=== PATIENT | female | born 1940 | race Caucasian/White ===

== ENCOUNTER 2020-05-03 05:53 | Day surgery (SDC) | payer MEDICARE, BC ==
[2020-05-02 10:10] LABS: PARTIAL THROMBOPLASTIN TIME 28 SECONDS (22-32)
[2020-05-02 10:13] LABS: ALBUMIN 3.6 G/DL (3.4-5.0); ANION GAP 5 (8-16); BLOOD UREA NITROGEN 10 MG/DL (7-18); BUN/CREATININE RATIO 12.3 (6.6-38.0); CALCIUM 9.6 MG/DL (8.5-10.1); CHLORIDE 96 MMOL/L (99-107); CREATININE 0.81 MG/DL (0.40-0.90); GLUCOSE 102 MG/DL (70-104); SODIUM 134 MMOL/L (135-145); TOTAL CARBON DIOXIDE 32.8 MMOL/L (24-32); eGFR 68 ML/MIN
[2020-05-02 10:20] LABS: BASOPHILS % (AUTO) 1.3 % (0-1); HEMATOCRIT 36.6 % (35.0-45.0); HEMOGLOBIN 12.5 g/dl (12.0-16.0); LYMPHOCYTES # (AUTO) 0.8 X10'3 (1.1-4.8); LYMPHOCYTES % (AUTO) 40.9 % (21-51); MEAN CORPUSCULAR HEMOGLOBIN 32.6 PG (27.0-31.0); MEAN CORPUSCULAR HGB CONC 34.1 g/dL (33.0-36.5); MEAN CORPUSCULAR VOLUME 95.8 FL (78-98); MEAN PLATELET VOLUME 7.9 FL (7.4-10.4); MONOCYTES # (AUTO) 0.2 X10'3 (0-0.9); MONOCYTES % (AUTO) 10.2 % (2-12); NEUTROPHILS # (AUTO) 0.9 X10'3 (1.8-7.7); NEUTROPHILS % (AUTO) 46.6 % (42-75); PLATELET COUNT 163 X10'3 (140-440); RED BLOOD COUNT 3.82 X10'6 (4.20-5.60); RED CELL DISTRIBUTION WIDTH 12.8 % (11.5-14.5)
[2020-05-02 11:05] LABS: TOTAL CELLS COUNTED 100
[2020-05-02 11:07] LABS: PLATELET ESTIMATE NORMAL; STOMATOCYTES 1+
[2020-05-03] VITALS (17 sets, daily range): BP systolic 73–133; BP diastolic 40–104
[~2020-05-03] VITALS: Ht 165.1 cm; Wt 61.8 kg
[~2020-05-03 05:53] MED LIST: ONDA8TAB9 PO
[2020-05-03] MEDS ORDERED: METO50TA16 PO (06:24)
[2020-05-03] MEDS ORDERED: METH2.5T55 PO (06:24)
[2020-05-03] MEDS ORDERED: POTASSIUM (06:24)
[2020-05-03] MEDS ORDERED: LACT1CAP65 PO (06:24)
[2020-05-03] MEDS ORDERED: FOLIC ACID PO (06:24)
[2020-05-03] MEDS ORDERED: HYDR25TA4 PO (06:24)
[2020-05-03] MEDS ORDERED: LORA-268 PO (06:24)
[2020-05-03] MEDS ORDERED: OMEG1CAP2 PO (06:24)
[2020-05-03] MEDS ORDERED: MAGN250T11 PO (06:24)
[2020-05-03] MEDS ORDERED: FLAX100031 PO (06:24)
[2020-05-03] MEDS ORDERED: normal saline 1,000 ML IV SCH ×2 (06:50→09:40)
[2020-05-03] MEDS ORDERED: diphenhydrAMINE 25mg capsule PO PRN (06:50)
[2020-05-03] MEDS ORDERED: LORazepam 0.5 MG tablet PO PRN (06:50)
[2020-05-03] MEDS ORDERED: LIDOcaine/PRILOcaine 5gm cream TP ONE (06:50)
[2020-05-03] MEDS ORDERED: verapamil 2.5 mg/ml inj IV ONE (07:12)
[2020-05-03] MEDS ORDERED: iohexol 350 MG/ML 50ML vial IV ONE (07:13)
[2020-05-03] MEDS ORDERED: fentaNYL/PF 50MCG/1 ML 2ML syringe ONE (07:13)
[2020-05-03] MEDS ORDERED: midazolam 2 mg/2 ml injection ONE (07:13)
[2020-05-03] MEDS ORDERED: LIDOcaine 1% (10mg/ml)w/preservative injection 20ml MDV ONE (07:13)
[2020-05-03] MEDS ORDERED: nitroGLYCERIN-Tridil 50MG/D5W 250 ML IV ONE (07:13)
[2020-05-03] MEDS ORDERED: heparin 1,000unit/ml 10ml vial 10 ML ONE (07:13)
[2020-05-03] MEDS ORDERED: iohexol 350MG/ML 100ml bottle IV ONE ×2 (07:13→08:44)
[2020-05-03 08:41] LABS: ISTAT HGB ART 11.2 g/dl (12.0-16.0); ISTAT Hct ART 33 %PCV (35-48); ISTAT O2 SATURATION ARTERIAL 97 % (95-98); ISTAT SOURCE ART
[2020-05-03] MEDS ORDERED: metoprolol tartrate 50mg tablet PO ONE (09:35)
[2020-05-03] MEDS ORDERED: HYDROcodone/acetaminophen 5mg/325mg tablet PO PRN (09:35)
[2020-05-03] MEDS ORDERED: HYDROcodone/acetaminophen 10/325mg tab PO PRN (09:35)
[2020-05-03] MEDS ORDERED: metoprolol tartrate 1mg/ml inj IV ONE (09:35)
[2020-05-03] MEDS ORDERED: metoprolol tartrate 1mg/ml inj IV STA (09:48)
== END 2020-05-03 14:50 | disposition home or self-care (01) ==
LOC: SSTAY O 05:53
PROVIDERS: ATTEND Internal Medicine Cardiovascular Disease
DX: I25.10 Atherosclerotic heart disease of native coronary artery without angina pectoris (principal); I44.7 Left bundle-branch block, unspecified; I48.91 Unspecified atrial fibrillation; I10 Essential (primary) hypertension; E78.5 Hyperlipidemia, unspecified; M06.9 Rheumatoid arthritis, unspecified; I48.0 Paroxysmal atrial fibrillation; G47.30 Sleep apnea, unspecified; E66.9 Obesity, unspecified; Z79.899 Other long term (current) drug therapy; Z90.710 Acquired absence of both cervix and uterus; Z87.891 Personal history of nicotine dependence
CPT/HCPCS: 80048; 82803; 85014; 85025; 85610; 85730; 93005; 93460; 99152; 99153; C1769; C1894; J1644; J2001; J2250; J3010; J7030; Q0163; Q9967; 85007; 93457; A4620; A5120; C1751; J3490

== ENCOUNTER 2020-09-02 20:07 | Emergency (ER) | payer MEDICARE, BC ==
[~2020-09-02] VITALS: Ht 162.6 cm; Wt 61.0 kg
[~2020-09-02 20:07] MED LIST changes: +FLAX100031 PO; +FOLIC ACID PO; +HYDR25TA4 PO; +LACT1CAP65 PO; +LORA-268 PO; +MAGN250T11 PO; +METH2.5T55 PO; +METO50TA16 PO; +OMEG1CAP2 PO; -ONDA8TAB9 PO; +POTASSIUM
[2020-09-02 22:35] LABS: EOSINOPHILS % (AUTO) 0.4 % (0-6); LYMPHOCYTES # (AUTO) 2.6 X10'3 (1.1-4.8); MONOCYTES # (AUTO) 0.6 X10'3 (0-0.9)
[2020-09-02 22:38] LABS: BASOPHILS % (AUTO) 0.5 % (0-1); HEMATOCRIT 35.3 % (35.0-45.0); LYMPHOCYTES % (AUTO) 60.3 % (21-51); MEAN CORPUSCULAR HEMOGLOBIN 31.8 PG (27.0-31.0); MEAN CORPUSCULAR VOLUME 93.6 FL (78-98); MEAN PLATELET VOLUME 7.2 FL (7.4-10.4); MONOCYTES % (AUTO) 14.3 % (2-12); NEUTROPHILS # (AUTO) 1.1 X10'3 (1.8-7.7); NEUTROPHILS % (AUTO) 24.5 % (42-75); PLATELET COUNT 193 X10'3 (140-440); RED BLOOD COUNT 3.78 X10'6 (4.20-5.60); RED CELL DISTRIBUTION WIDTH 12.3 % (11.5-14.5); WHITE BLOOD COUNT 4.3 X10'3 (4.5-11.0)
[2020-09-02 22:43] LABS: ALANINE AMINOTRANSFERASE 16 U/L (12-78); ALBUMIN 3.7 G/DL (3.4-5.0); ALBUMIN/GLOBULIN RATIO 0.9 (1.1-1.5); ALKALINE PHOSPHATASE 81 IU/L (46-116); ANION GAP 5 (8-16); ASPARTATE AMINO TRANSFERASE 26 U/L (10-37); BILIRUBIN,TOTAL 0.4 MG/DL (0.1-1.0); BLOOD UREA NITROGEN 13 MG/DL (7-18); BUN/CREATININE RATIO 15.5 (6.6-38.0); CALCIUM 9.3 MG/DL (8.5-10.1); CHLORIDE 93 MMOL/L (99-107); CREATININE 0.84 MG/DL (0.40-0.90); GLUCOSE 118 MG/DL (70-104); POTASSIUM 3.3 MMOL/L (3.5-5.1); SODIUM 131 MMOL/L (135-145); TOTAL CARBON DIOXIDE 33.4 MMOL/L (24-32); TOTAL PROTEIN 7.9 G/DL (6.4-8.2); eGFR 65 ML/MIN
[2020-09-03 00:27] VITALS: BP 160/60
== END 2020-09-03 02:19 | disposition home or self-care (01) ==
LOC: ER 20:08
DX: R53.1 Weakness (principal); I10 Essential (primary) hypertension; Z85.6 Personal history of leukemia; Z87.440 Personal history of urinary (tract) infections; Z90.710 Acquired absence of both cervix and uterus; Z98.890 Other specified postprocedural states; Z79.899 Other long term (current) drug therapy
CPT/HCPCS: 80053; 85025; 93005; 99284

== ENCOUNTER 2023-01-11 13:04 | Emergency (ER) | payer MEDICARE, BC ==
[~2023-01-11] VITALS: Ht 162.6 cm; Wt 58.6 kg
[2023-01-11] MEDS ORDERED: ACYC-129 PO (14:52)
[2023-01-11 15:19] VITALS: BP 143/58; PULSE 54; RESP 16; TEMP 98; O2SAT 99
== END 2023-01-11 15:00 | disposition home or self-care (01) ==
LOC: ER 13:05
DX: B02.9 Zoster without complications (principal); I10 Essential (primary) hypertension; M19.90 Unspecified osteoarthritis, unspecified site; Z79.899 Other long term (current) drug therapy; Z90.710 Acquired absence of both cervix and uterus
CPT/HCPCS: 99283